=== PATIENT | female | born 1945 | race Native Hawaiian/Other Pacific Islander ===

== ENCOUNTER 2017-03-02 10:57 | Outpatient (CLI) | payer OTHER | END 2017-03-02 11:04 | disposition short-term general hospital (02) | LOC: AMB 10:57 | DX: I46.8 Cardiac arrest due to other underlying condition (principal); T79.4XXA Traumatic shock, initial encounter; R04.0 Epistaxis; S09.8XXA Other specified injuries of head, initial encounter; V49.88XA Car occupant (driver) (passenger) injured in other specified transport accidents, initial encounter; Y92.488 Other paved roadways as the place of occurrence of the external cause | CPT/HCPCS: A0425; A0427 ==